=== PATIENT | female | born 1965 | race Caucasian/White ===

== ENCOUNTER 2016-07-31 17:35 | Observation (INO) ==
--- NOTE | 2016-07-31 18:19 | Emergency Department Note ---
Disposition Clinical Impression: Chest pain Qualifiers: Chest pain type: precordial pain Qualified Code(s): R07.2 - Precordial pain Disposition: Admitted As Inpatient Condition: Good Chest Pain HPI - General Chief Complaint: ED Chest Pain Stated Complaint: Chest heaviness, Poss TIA Time Seen by Provider: 07/31/16 17:46 Source: patient Limitations: no limitations Vital Signs Reviewed: Yes Nursing Notes Reviewed: Yes - History of Present Illness HPI Narrative: Patient presents with complaint of chest pressure that started around 2 PM today. She describes a minimal chest radiation up the right side of her jaw down her right arm. Patient has had some mild shortness of breath associated with this. Patient denies any aggravating alleviating factors. Patient denies prior history of similar symptoms. Patient denies tingling but she has some mild numbness associated. Friend at the bedside notes that she felt that the patient was a little "slow" than her normal self. Also appears there is some report of unsteady gait but while in emergency Department patient was able to ambulate appropriately. Patient denies vision changes Severity scale (1-10): 4 - Related Data Home Medications Medication Instructions Recorded Confirmed Acetaminophen [Tylenol] 500 mg PO Q6HR PRN 05/25/15 07/31/16 Ascorbic Acid [Vitamin C] 1,000 mg PO DAILY 05/25/15 07/31/16 Cholecalciferol (Vitamin D3) 1,000 unit PO DAILY 05/25/15 07/31/16 [Vitamin D3] Ferrous Sulfate [Iron] 325 mg PO DAILY 05/25/15 07/31/16 Furosemide [Lasix] 20 mg PO DAILY 05/25/15 07/31/16 Vitamin B Complex 1 each PO DAILY 05/25/15 07/31/16 Cholestyramine [Cholestyramine] 4 mg PO DAILY PRN 07/31/16 07/31/16 Diclofenac Sodium [Diclofenac 1 appl TP QID PRN 07/31/16 07/31/16 Sodium] Docusate [Colace] 100 mg PO BID PRN 07/31/16 07/31/16 Meloxicam [Meloxicam] 15 mg PO DAILY 07/31/16 07/31/16 Thiamine (B-1) [Vitamin B-1] 100 mg PO DAILY 07/31/16 07/31/16 Allergies Allergy/AdvReac Type Severity Reaction Status Date / Time Cephalosporins Allergy Rash Verified 05/25/15 13:37 nalbuphine [From Nubain] AdvReac Confusion Verified 05/25/15 13:37 naproxen [From Naprosyn] AdvReac See Verified 05/25/15 13:37 Comments All systems ED: reviewed and negative except as stated. Chest Pain PMH - Past Medical History Medical history: Reports: asthma, hypertension, kidney stones, other Surgical history: Reports: cholecystectomy Psychiatric history: Reports: depression - Social History Smoking Status: Unknown if ever smoked Alcohol use: Reports: occasionally Drug use: Reports: none Physical Exam - General Limitations: no limitations General appearance: alert, in no apparent distress - Head Head exam: atraumatic, normocephalic, normal inspection - Eye Eye exam: Present: normal appearance, PERRL, EOMI - ENT ENT exam: normal exam, normal oropharynx, mucous membranes moist - Neck Neck exam: Present: normal inspection, full ROM, trachea midline - Chest Chest inspection: Present: normal inspection, symmetric chest wall rise - Respiratory Respiratory exam: Present: normal lung sounds bilaterally - Cardiovascular Cardiovascular exam: Present: regular rate, normal rhythm, normal heart sounds - Abdominal Exam Abdominal exam: Present: soft, Non-Tender. Absent: tenderness, distention, guarding, rebound, rigidity - Extremities Exam Extremities exam: Present: normal inspection, full ROM. Absent: tenderness, pedal edema - Back Exam Back exam: Present: normal inspection, full ROM. Absent: tenderness - Neurological Exam Neurological exam: Present: alert, oriented X3 - Psychiatric Psychiatric exam: Present: normal affect, normal mood - Skin Skin exam: Present: warm, dry, intact, normal color Course Vital Signs Temperature 97.7 F 07/31/16 17:39 Pulse Rate 79 07/31/16 17:39 Respiratory Rate 18 07/31/16 17:39 Blood Pressure 185/98 07/31/16 17:39 O2 Sat by Pulse Oximetry 98 07/31/16 17:39 Temperature 97.6 F 07/31/16 23:23 Pulse Rate 72 07/31/16 23:23 Respiratory Rate 18 07/31/16 23:23 Blood Pressure 158/87 07/31/16 23:23 O2 Sat by Pulse Oximetry 98 07/31/16 23:23 Oxygen Delivery Oxygen Delivery Room Air Chest Pain - Differential Diagnosis Likely: pneumothorax, stable angina, atypical chest pain, st elevation myocardial infraction - Lab Data Lab results reviewed: Yes I reviewed the patient's lab results. Result diagrams: 07/31/16 18:54 07/31/16 18:45 Lab Results 07/31/16 07/31/16 07/31/16 Range/Units 18:45 18:45 18:54 WBC 8.5 (4.3-11.1) K/mcL RBC 4.47 (3.82-4.97) M/mcL Hgb 12.1 (11.5-15.4) g/dL Hct 39.2 (35.3-44.9) % MCV 87.7 (83.0-100.0) fL MCH 27.1 L (28.0-33.3) pg MCHC 30.9 L (31.6-35.5) g/dL RDW 13.5 (11.5-14.5) % Plt Count 278 (140-400) K/mcL MPV 9.8 (9.4-12.4) fL Immature Gran % 0.5 (0-4) % Seg Neutrophils % 57.6 % Lymphocytes % 34.1 % Monocytes % 5.2 % Eosinophils % 1.9 % Basophils % 0.7 % Neutrophils # 4.9 (1.6-8.9) K/mcL Lymphocytes # 2.9 (0.6-4.6) K/mcL Monocytes # 0.4 (0.0-1.3) K/mcL Eosinophils # 0.2 (0.0-0.6) K/mcL Basophils # 0.1 (0.0-0.2) K/mcL APTT (26.0-36.0) Seconds D-Dimer (0-500) ng/mLFEU Sodium 139 (136-145) mEq/L Potassium 4.2 (3.5-4.5) mEq/L Chloride 104 (98-109) mEq/L Carbon Dioxide 28 (19-29) mEq/L BUN 22 H (7-20) mg/dL Creatinine 0.84 (0.57-1.11) mg/dL Est GFR ( Amer) > 60 (> 60) Est GFR (Non-Af Amer) > 60 (> 60) BUN/Creatinine Ratio 26 (6-26) Glucose 90 (70-99) mg/dL Calculated Osmolality 291 (280-300) Calcium 9.7 (8.6-10.8) mg/dL Total Bilirubin 0.6 (0.2-1.2) mg/dL AST 13 (5-34) Units/L ALT 19 (0-55) Units/L Alkaline Phosphatase 60 (38-126) Units/L Troponin I 0.00 (0-0.03) ng/mL B-Natriuretic Peptide (0-100) pg/mL Serum Total Protein 7.8 (6.0-8.3) g/dL Albumin 4.1 (3.5-5.0) g/dL Globulin 3.7 H (2.4-3.5) g/dL Albumin/Globulin Ratio 1.1 (1.1-2.2) 07/31/16 07/31/16 Range/Units 18:54 18:56 WBC (4.3-11.1) K/mcL RBC (3.82-4.97) M/mcL Hgb (11.5-15.4) g/dL Hct (35.3-44.9) % MCV (83.0-100.0) fL MCH (28.0-33.3) pg MCHC (31.6-35.5) g/dL RDW (11.5-14.5) % Plt Count (140-400) K/mcL MPV (9.4-12.4) fL Immature Gran % (0-4) % Seg Neutrophils % % Lymphocytes % % Monocytes % % Eosinophils % % Basophils % % Neutrophils # (1.6-8.9) K/mcL Lymphocytes # (0.6-4.6) K/mcL Monocytes # (0.0-1.3) K/mcL Eosinophils # (0.0-0.6) K/mcL Basophils # (0.0-0.2) K/mcL APTT 29.5 (26.0-36.0) Seconds D-Dimer 228 (0-500) ng/mLFEU Sodium (136-145) mEq/L Potassium (3.5-4.5) mEq/L Chloride (98-109) mEq/L Carbon Dioxide (19-29) mEq/L BUN (7-20) mg/dL Creatinine (0.57-1.11) mg/dL Est GFR ( Amer) (> 60) Est GFR (Non-Af Amer) (> 60) BUN/Creatinine Ratio (6-26) Glucose (70-99) mg/dL Calculated Osmolality (280-300) Calcium (8.6-10.8) mg/dL Total Bilirubin (0.2-1.2) mg/dL AST (5-34) Units/L ALT (0-55) Units/L Alkaline Phosphatase (38-126) Units/L Troponin I (0-0.03) ng/mL B-Natriuretic Peptide < 10 (0-100) pg/mL Serum Total Protein (6.0-8.3) g/dL Albumin (3.5-5.0) g/dL Globulin (2.4-3.5) g/dL Albumin/Globulin Ratio (1.1-2.2) - Radiology Data Radiology results reviewed: Yes I reviewed the patient's radiology results. Chest X-Ray 07/31/16 17:46 IMPRESSION: Stable portable study. D/ / Shawanda Soler Cha, MD / Shawanda Soler Cha, MD Interpreting Provider: Shawanda Soler Cha, MD Head CT 07/31/16 17:46 IMPRESSION: No acute intracranial abnormality. D/ / 07/31/2016 18:21:59 Tahmina Chao MD / sharon Interpreting Provider: Tahmina Chao MD - EKG Data EKG attestation: Yes I reviewed and interpreted this EKG. EKG shows normal: sinus rhythm Rate: normal Rhythm: NSR
[2016-07-31 19:06] LABS: Alanine Aminotransferase 19 Units/L (0-55); Albumin 4.1 g/dL (3.5-5.0); Albumin/Globulin Ratio 1.1 (1.1-2.2); Alkaline Phosphatase 60 Units/L (38-126); Aspartate Amino Transferase 13 Units/L (5-34); BUN/Creatinine Ratio 26 (6-26); Bilirubin,Total 0.6 mg/dL (0.2-1.2); Blood Urea Nitrogen 22 mg/dL (7-20); Calcium 9.7 mg/dL (8.6-10.8); Carbon Dioxide 28 mEq/L (19-29); Chloride 104 mEq/L (98-109); Globulin 3.7 g/dL (2.4-3.5); Glucose 90 mg/dL (70-99); Osmolality,Calculated 291 (280-300); Potassium 4.2 mEq/L (3.5-4.5); Sodium 139 mEq/L (136-145); Total Protein 7.8 g/dL (6.0-8.3); eGFR For African Americans > 60 (> 60); eGFR For Non-African Americans > 60 (> 60)
[2016-07-31 19:14] LABS: Activated Partial Thrombo Time 29.5 Seconds (26.0-36.0)
[2016-07-31 19:43] LABS: Basophils # 0.1 K/mcL (0.0-0.2); Basophils % 0.7 %; Eosinophils # 0.2 K/mcL (0.0-0.6); Eosinophils % 1.9 %; Hematocrit 39.2 % (35.3-44.9); Hemoglobin 12.1 g/dL (11.5-15.4); Immature Granulocytes % 0.5 % (0-4); Lymphocytes # 2.9 K/mcL (0.6-4.6); Lymphocytes % 34.1 %; Mean Corpuscular HGB Conc 30.9 g/dL (31.6-35.5); Mean Corpuscular Hemoglobin 27.1 pg (28.0-33.3); Mean Corpuscular Volume 87.7 fL (83.0-100.0); Mean Platelet Volume 9.8 fL (9.4-12.4); Monocytes # 0.4 K/mcL (0.0-1.3); Monocytes % 5.2 %; Neutrophils # 4.9 K/mcL (1.6-8.9); Platelet Count 278 K/mcL (140-400); Red Blood Count 4.47 M/mcL (3.82-4.97); Red Cell Distribution Width 13.5 % (11.5-14.5); Segmented Neutrophils % 57.6 %
[2016-07-31] MEDS ORDERED: Naloxone 0.4 MG/ML INJ IVP PRN (23:01)
[2016-07-31] MEDS ORDERED: Cholestyramine 4 GM POWD.PACK PO PRN (23:03)
--- NOTE | 2016-07-31 23:56 | Internal Med History&Physical ---
Date of Encounter: 07/31/16 Time of Encounter: 23:40 Assessment and Plan (1) Chest pain Current visit: Yes Status: Acute patient with a prior cath that reports non obstructive CAD comes in with chest pain concerning for ACS, her admission EKG was unremarkable, her troponin levels were not elevated, we will admit for stress test, meanwhile we will cycle troponin, telemonitor, check A1c and lipid panel, NPO after midnight Qualifiers: Chest pain type: precordial pain Qualified Code(s): R07.2 - Precordial pain (2) Acute encephalopathy Current visit: Yes Status: Acute her transient confusion, fleeting left sided weakness and weak him specialist strength is not consistent with her Chest pain, her admission head CT was unremarkable but due to concern for TIA vs CVA, we will get an MRI of the brain for further evaluation (3) LORENA on CPAP Current visit: Yes Status: Acute she is on CPAP and hoe and she brought it, we will get RT to manage it (4) HTN (hypertension) Current visit: Yes Status: Chronic she is on metoprolol at home and her BP usually runs in the 120's/70's and for that reason her medication was stopped about a month ago, we will resume it in the setting of her elevated BP Qualifiers: Hypertension type: essential hypertension Qualified Code(s): I10 - Essential (primary) hypertension (5) SVT (supraventricular tachycardia) Current visit: Yes Status: Chronic this is thought to be related to her mitral valve prolapse, she is on metoprolol a home, we will continue (6) Depression Current visit: Yes Status: Chronic will continue home medications Qualifiers: Depression Type: reactive depression Qualified Code(s): F32.9 - Major depressive disorder, single episode, unspecified (7) Morbid obesity with BMI of 50.0-59.9, adult Current visit: Yes Status: Chronic she already see a medical laboratory scientist here as outpatient, she will continue Internal Medicine - H&P: HPI Chief complaint: Chest pain Admitted From: Emergency Dept Plans for Post Hospital Care: Home History of present illness: Ms. Black is a 50 year old female with a history of morbid obesity and well controlled HTN was brought in today for chest pain. She reports that she was in her usual state of health until between 2-3pm this afternoon when whilst on a conference call at work she felt her right hand go numb and feel heavy. This rapidly moved into her right jaw and across her chest. There was then chest heaviness, " like someone sitting on my chest". She rated this heaviness as 3-4/ 10 and lasted for about 15-2 minutes and went away. She left work and went home. For about 45 minutes she was chest pain free and had no other symptoms. Her pain came again in similar fashion, her friend who was with her checked her BP and it was reading 160/115mmHg in one arm and 160/101mmHg in the other arm. She also felt wobbly and was holding on to structures for support as she walked. Her pain was associated with lightheadedness. She felt cold and was short of breath, she also had nausea. She denies diaphoresis, feeling of apprehension, palpitations or syncope. The pain lasted until she got to the ER, the pain self abated in the ER. Of note she reports that for the past 3 days she has had lightheadedness, no vertigo, and that it comes on sometime at rest or when she ambulates. She has not noticed any focal weakness except when she had the chest pain, during that period she lost strength in her left arm and had a weak him specialist strength per her friend. She was kel slow in responding to questions and felt groggy. She has had a stress test in the past, she additionally had a cardiac cath about 10 years ago for which no stent was placed but was told she had a narrowing of about 35% in one of her vessels. Past Med Surg Social Fam HX - Past Medical History Source: patient Medical history: asthma, hypertension, kidney stones, other (LORENA on CPAP and 2L/ min of O2 at night, MVP with SVT episodes, ) Psychiatric history: depression - Past Surgical History Surgical History: cholecystectomy, other (lapband in 2009, admissions for D&C) - Social History Smoking Status: Never smoker Smokeless Tobacco Status: No Alcohol use: occasionally Drug use: none Current living situation: Home - Independent, Home Activity Level: Independent ambulation - Family History Mother Living Status: Still Living Hx Family Cardiac Disorders: Yes (CHF) Hx Family Respiratory Disorders: No Hx Family Cancer: Yes Hx Family GI Disorders: No Hx Family Endocrine Disorder: Yes (Maternal grandfather) Hx Family Neuromuscular Disorders: No Hx Family Neurologic Disorders: No Hx Family HEENT Disorders: No Hx Family Autoimmune Disorders: No Father Hx Family Cardiac Disorders: Yes ([place]) Hx Family Respiratory Disorders: Yes Brother Hx Family Endocrine Disorder: Yes (DM) - Additional Family History Additional family history: father had sudden before his 50's, he had HTN, mother has stage 4 melanoma in remission, HTN, CHF,. a brother has DM Internal Medicine - H&P: Meds Acetaminophen [Tylenol] 500 mg PO Q6HR PRN 05/25/15 [History] Ascorbic Acid [Vitamin C] 1,000 mg PO DAILY 05/25/15 [History] Cholecalciferol (Vitamin D3) [Vitamin D3] 1,000 unit PO DAILY 05/25/15 [History] Ferrous Sulfate [Iron] 325 mg PO DAILY 05/25/15 [History] Furosemide [Lasix] 20 mg PO DAILY 05/25/15 [History] Vitamin B Complex 1 each PO DAILY 05/25/15 [History] Cholestyramine [Cholestyramine] 4 mg PO DAILY PRN 07/31/16 [History] Diclofenac Sodium [Diclofenac Sodium] 1 appl TP QID PRN 07/31/16 [History] Docusate [Colace] 100 mg PO BID PRN 07/31/16 [History] Meloxicam [Meloxicam] 15 mg PO DAILY 07/31/16 [History] Thiamine (B-1) [Vitamin B-1] 100 mg PO DAILY 07/31/16 [History] Allergies Cephalosporins Allergy (Verified 05/25/15 13:37) Rash nalbuphine [From Nubain] Adverse Reaction (Verified 05/25/15 13:37) Confusion naproxen [From Naprosyn] Adverse Reaction (Verified 05/25/15 13:37) See Comments pt has had lap-band in the past All Systems PM: A 10-system review of systems was performed and is negative for pertinent findings except as documented above in the HPI. - Constitutional Vitals: Temp Pulse Resp BP Pulse Ox 97.6 F 72 18 158/87 98 07/31/16 23:23 07/31/16 23:23 07/31/16 23:23 07/31/16 23:23 07/31/16 23:23 PHYSICAL EXAMINATION: GENERAL: Adult female, lying in bed with no sign of distress, Alert, morbidly obese looking HEENT: NC/AT, EOMI, PERRLA, anicteric sclera, normal conjunctiva, supple, clear nares, moist mucous membranes, clear oropharynx, central uvula RESP: no chest wall tenderness with palpation, lungs are clear to auscultation bilaterally, good AE bilaterally, No crackles or wheeze CARDIO: Normal hearts sounds; S1 and 2, RRR with no murmurs, no JVD, obese looking legs GI: Soft, full, no tenderness, no organomegaly felt, normal bowel sounds heard MUSCULOSKELETAL: grossly normal movements bilaterally, no deformities noted, no calf tenderness EXTREMITIES: No clubbing, cyanosis or edema, NEUROLOGIC: CN 2-12 intact grossly. No motor/sensory deficit appreciated, PSYCHIATRY: AAO x 3. Mood is fair, exhibits appropriate judgement SKIN: no skin rash or ulcers noted Internal Med - H&P Results - Labs CBC & Chem 7: 07/31/16 18:54 07/31/16 18:45 - EKG Data -: EKG Interpreted by Myself EKG shows normal: sinus rhythm - Diagnostic Studies Chest x-ray Status: image reviewed by me CT scan - head Status: image reviewed by me
[2016-08-01] MEDS ORDERED: Regadenoson 0.4 MG/5 ML SYRINGE IVP ONE (06:16)
[2016-08-01 07:12] LABS: Hemoglobin A1C 5.2 %
[2016-08-01 07:28] LABS: BUN/Creatinine Ratio 24 (6-26); Blood Urea Nitrogen 18 mg/dL (7-20); Calcium 8.9 mg/dL (8.6-10.8); Carbon Dioxide 28 mEq/L (19-29); Chloride 106 mEq/L (98-109); Chol/HDL Ratio 4.8 (0-4.9); Cholesterol 178 mg/dL (< 200); Glucose 101 mg/dL (70-99); HDL Cholesterol 37 mg/dL (40-59); LDL Cholesterol,Calculated 104 mg/dL (0-99); Magnesium 2.1 mg/dL (1.6-2.6); Osmolality,Calculated 296 (280-300); Phosphorous 3.7 mg/dL (2.3-4.7); Potassium 3.7 mEq/L (3.5-4.5); Sodium 142 mEq/L (136-145); Triglycerides 186 mg/dL (< 150); eGFR For African Americans > 60 (> 60); eGFR For Non-African Americans > 60 (> 60)
--- NOTE | 2016-08-01 10:26 | Internal Med Progress Note ---
Date of Encounter: 08/01/16 Time of Encounter: 10:24 - Assessment and plan (1) Chest pain Current Visit: Yes Status: Acute Assessment and plan: Trops negative, no EKG changes, follow up stress test report in the morning. Qualifiers: Chest pain type: precordial pain Qualified Code(s): R07.2 - Precordial pain (2) LORENA on CPAP Current Visit: Yes Status: Chronic Assessment and plan: CPAP at bedtime. (3) HTN (hypertension) Current Visit: Yes Status: Chronic Assessment and plan: Controlled Now, continue current medications. Qualifiers: Hypertension type: essential hypertension Qualified Code(s): I10 - Essential (primary) hypertension (4) SVT (supraventricular tachycardia) Current Visit: Yes Status: Chronic Assessment and plan: Chronic as per the patient , secondary to mitral valve prolapse. Continue telemetry. (5) Depression Current Visit: Yes Status: Chronic Assessment and plan: Continue home medications. Qualifiers: Depression Type: reactive depression Qualified Code(s): F32.9 - Major depressive disorder, single episode, unspecified (6) Morbid obesity with BMI of 50.0-59.9, adult Current Visit: Yes Status: Chronic Assessment and plan: Encouraged weight loss. (7) Acute encephalopathy Current Visit: Yes Status: Acute Assessment and plan: Resolved Possibly secondary to uncontrolled hypertension. Head CT, and brain MRI negative for any acute processes. - Subjective Interval history: Seen at bedside Admitted for evaluation of chest pain Other admitting diagnosis include acute encephalopathy (resolved), Uncontrolled HTN She has a PMH of Asthma, HTN, Nephrolithiasis, LORENA on CPAP, Mitral valve prolapse - Constitutional Vitals: Temp Pulse Resp BP Pulse Ox 98.0 F 56 16 145/79 97 08/01/16 07:25 08/01/16 07:25 08/01/16 07:25 08/01/16 07:25 08/01/16 07:25 General appearance: Present: A&O X 3, morbidly obese, pleasant, answers questions appropriately Exam: Physical Examination Gen: Adult female, lying in bed with no sign of distress, Alert, morbidly obese looking HEENT: NC/AT, EOMI, PERRLA, anicteric sclera, normal conjunctiva, supple, clear nares, moist mucous membranes, clear oropharynx, central uvula RESP: no chest wall tenderness with palpation, lungs are clear to auscultation bilaterally, good AE bilaterally, No crackles or wheeze CARDIO: Normal hearts sounds; S1 and 2, RRR with no murmurs, no JVD, obese looking legs GI: Soft, full, no tenderness, no organomegaly felt, normal bowel sounds heard MUSCULOSKELETAL: grossly normal movements bilaterally, no deformities noted, no calf tenderness EXTREMITIES: No clubbing, cyanosis or edema, NEUROLOGIC: CN 2-12 intact grossly. No motor/sensory deficit appreciated, PSYCHIATRY: AAO x 3. Mood is fair, exhibits appropriate judgement SKIN: no skin rash or ulcers noted - Head Head exam: Present: atraumatic, normocephalic - Eye Eye exam: Present: PERRL, conjuntiva pink, sclera anicteric Pupils: Present: PERRL - Neck Neck exam general surgery: Present: supple, trachea midline. Absent: lymphadenopathy - Respiratory Respiratory exam: Present: CTAB. Absent: accessory muscle use, rales, rhonchi, wheezes - Cardiovascular Cardiovascular exam: Present: RRR, +S1 (LOud S1), +S2. Absent: diastolic murmur , gallop, rubs, systolic murmur - GI/Abdominal GI/Abdominal exam: Present: normal bowel sounds, soft, no peritoneal signs. Absent: distended, tenderness - Extremities Exam Extremities exam: Present: warm, radial pulses palpable and symetrical. Absent : calf tenderness, cyanotic, pedal edema - Neurological Exam Neurological exam: Present: alert, CN II-XII intact, oriented X3, no focal deficits. Absent: pronater drift, facial droop, speech deficit - Skin Skin exam: Present: dry, intact Internal Medicine: Result - Labs CBC & Chem 7: 07/31/16 18:54 08/01/16 06:14 Labs: BMP 08/01/16 06:14 Sodium 142 Potassium 3.7 Chloride 106 Carbon Dioxide 28 BUN 18 Creatinine 0.74 Glucose 101 H Calcium 8.9 Cardiac Enzymes 07/31/16 08/01/16 Range/Units 23:56 06:14 Troponin I 0.00 0.00 (0-0.03) ng/mL - ABG Interpretation ABG results: PT/INR, D-dimer D-Dimer 228 ng/mLFEU (0-500) 07/31/16 18:56 Consult Discharge Plan - Plan Referrals: Danica Ly MD [Primary Care Provider] -
[2016-08-01] MEDS: Furosemide 20 MG TABLET PO SCH (13:36)
[2016-08-01] MEDS: Vitamin B Complex/Vit C/Vit E 1 EACH TABLET PO SCH (13:37)
[2016-08-01] MEDS: Ascorbic Acid 500 MG TABLET PO SCH (13:37)
[2016-08-01] MEDS: Thiamine (B-1) 100 MG TABLET PO SCH (13:37)
[2016-08-01] MEDS: Cholecalciferol (D-3) 1,000 UNIT TABLET PO SCH (13:38)
[2016-08-01] MEDS ORDERED: *HR* Heparin 5,000 UNIT/ML VIAL SQ SCH (14:00)
[2016-08-01] MEDS: *HR* Heparin 5,000 UNIT/ML VIAL SQ SCH ×2 (14:10→21:22)
--- NOTE | 2016-08-01 19:28 | Electrocardiograph Report ---
[address] [address] Test Date: 2016-07-31 Pat Name: Camelia Black Department: 105 Room: 3B Gender: F Follow Up Manager: : 1965 Requested By: Isai Echeverria Order Number: [id number] Reading MD: Jarod Ware MD Measurements Intervals [place] Rate: 74 P: 44 ME: 181 QRS: -16 QRSD: 93 T: 31 QT: 386 QTc: 413 Interpretive Statements SINUS RHYTHM Poor R wave progression Electronically Signed On 08-01-2016 19:27:18 EDT by Jarod Ware MD
[2016-08-02] MEDS: *HR* Heparin 5,000 UNIT/ML VIAL SQ SCH (06:27)
[2016-08-02] MEDS: Ascorbic Acid 500 MG TABLET PO SCH (09:57)
[2016-08-02] MEDS: Cholecalciferol (D-3) 1,000 UNIT TABLET PO SCH (09:57)
[2016-08-02] MEDS: Vitamin B Complex/Vit C/Vit E 1 EACH TABLET PO SCH (09:57)
[2016-08-02] MEDS: Furosemide 20 MG TABLET PO SCH (09:57)
[2016-08-02] MEDS: Thiamine (B-1) 100 MG TABLET PO SCH (09:57)
[2016-08-02 11:42] VITALS: BP 131/87
--- NOTE | 2016-08-02 11:48 | Nuclear Medicine Stress Report ---
Regadenoson Nuclear 2 day Name: Camelia Black Date of Study: 08/01/2016 Date: 1965 Ht: 66.0 in Medical Record#: [id number] Age: 50 Wt: 320.0 lb Gender: Female Order #: [id number] Location: [facility] Room: [facility] Supervising Provider: Padmini Malik CNP Reading Physician: Graham Haro DO, FACC, FASPA Ordering Physician: Madeline Espino CNP Primary Care Physician: Danica Ly MD Stress Technologist: Abida Morel PACKAGER, CCT Flamer After Lasting: Brody Diehl Indications: Chest Pain Impression: Pharmacologic stress ECG is negative for ischemia at level of heart rate achieved. Gated EF > 70%. Perfusion imaging was negative for ischemia or infarct. History: Hypertension Stress Test Summary: Stress Test Type: Pharmacologic Regadenoson 0.4mg/5ml given IV Baseline Information: Initial Heart Rate: 67 Blood Pressure: 138/74 Stress Information: Test Terminated Due to (primary): As per protocol Maximum Blood Pressure: 118/72 Maximum Heart Rate: 83 Percent Maximum Heart Rate Achieved: 48 Double Product: [id number] METS Reached: 1 Symptoms: No chest symptoms Nuclear Summary: SPECT myocardial perfusion imaging using Tc99m Sestamibi given intravenously was performed at rest and following cardiac stress testing. The resting images were obtained following initial dose of 33.5 mCi. Following stress an additional dose of 34.2 mCi was given at peak exercise or 30 seconds post regadenoson infusion. Medication Given: Time Medication Dose Units Route Findings: Stress Note * Resting ECG demonstrated normal sinus rhythm. * No baseline arrhythmias were noted. * Pharmacologic stress ECG is negative for ischemia at level of heart rate achieved. * No arrhythmias were noted during stress. * Patient had no chest pain during stress. Hemodynamic responses * Normal hemodynamic responses to pharmacologic stress. Study Quality * Study quality is average. Gated EF > 70% * Gated EF > 70%. Left Ventricle * The left ventricle is not dilated. * LVEDV = 126 mL. NORMALS * Normal wall motion. * Normal Segmental Perfusion in rest. * Normal segmental perfusion in stress. TID * No evidence of transient ischemic dilatation. TID ratio * TID ratio = 1.06. Lung Uptake * There is no evidence of increase lung uptake. Updated by Graham Haro DO, ALVIN, DOMINIC, KWASI on 08/02/2016 11:41:26 AM electronically signed on 08/02/2016 11:41:55 AM with status of Final
--- NOTE | 2016-08-02 12:46 | Discharge Summary ---
Date of Encounter: 08/02/16 Time of Encounter: 10:00 - Discharge Diagnosis (1) Chest pain Priority: Primary Status: Acute Qualifiers: Chest pain type: precordial pain Qualified Code(s): R07.2 - Precordial pain (2) HTN (hypertension) Priority: Secondary Status: Chronic Qualifiers: Hypertension type: essential hypertension Qualified Code(s): I10 - Essential (primary) hypertension (3) Morbid obesity with BMI of 50.0-59.9, adult Priority: Secondary Status: Chronic - Discharge Medications Home Medications: Acetaminophen [Tylenol] 500 mg PO Q6HR PRN 05/25/15 [History] Ascorbic Acid [Vitamin C] 1,000 mg PO DAILY 05/25/15 [History] Cholecalciferol (Vitamin D3) [Vitamin D3] 1,000 unit PO DAILY 05/25/15 [History] Ferrous Sulfate [Iron] 325 mg PO DAILY 05/25/15 [History] Furosemide [Lasix] 20 mg PO DAILY 05/25/15 [History] Vitamin B Complex 1 each PO DAILY 05/25/15 [History] Cholestyramine 4 mg PO DAILY PRN 07/31/16 [History] Diclofenac Sodium 1 appl TP QID PRN 07/31/16 [History] Docusate [Colace] 100 mg PO BID PRN 07/31/16 [History] Meloxicam 15 mg PO DAILY 07/31/16 [History] Thiamine (B-1) [Vitamin B-1] 100 mg PO DAILY 07/31/16 [History] Allergies/Adverse Reactions: Allergies Cephalosporins Allergy (Verified 05/25/15 13:37) Rash nalbuphine [From Nubain] Adverse Reaction (Verified 05/25/15 13:37) Confusion naproxen [From Naprosyn] Adverse Reaction (Verified 05/25/15 13:37) See Comments pt has had lap-band in the past Procedures/tests Complete & Pending: Procedures Performed prior 72 hours Category Date Time Status NM narendra perf SPECT multi [NM] Routine Exams 07/31/16 23:13 Taken MR head/brain wo con [MR] Routine MRI 07/31/16 23:54 Completed SP pharm nuclear stress Routine Y 08/01/16 07:45 Completed Date of admission: 07/31/16 21:43 [facility]: Ephraim Chang Anticipated date of discharge: 08/02/16 - Patient Status Disposition: Home, Self-Care Condition: Good Overall status at discharge: patient is back to baseline - Discharge Instructions Instructions: Chest Pain (DC) Follow Up With: Danica Ly MD [Primary Care Provider] - 08/13/16 1:45 pm - Diet and Activity Activity: increase activity as tolerated Diet: advance to your usual diet Interval History: Ms. Black is a 50 year old female with a history of morbid obesity and well controlled HTN was brought in today for chest pain. She reports that she was in her usual state of health until between 2-3pm this afternoon when whilst on a conference call at work she felt her right hand go numb and feel heavy. This rapidly moved into her right jaw and across her chest. There was then chest heaviness, " like someone sitting on my chest". She rated this heaviness as 3-4/ 10 and lasted for about 15-2 minutes and went away. She left work and went home. For about 45 minutes she was chest pain free and had no other symptoms. Her pain came again in similar fashion, her friend who was with her checked her BP and it was reading 160/115mmHg in one arm and 160/101mmHg in the other arm. She also felt wobbly and was holding on to structures for support as she walked. Her pain was associated with lightheadedness. She felt cold and was short of breath, she also had nausea. She denies diaphoresis, feeling of apprehension, palpitations or syncope. The pain lasted until she got to the ER, the pain self abated in the ER. Hospital course: Ms. Black is a 50 year old female admitted for chest pain and dizziness. She was placed on continuous cardiac rehabilitation specialist. 3 sets of troponin negative, d-dimer negative. Patient had a stress test, which is negative, EF 70%. Brain MRI unremarkable. Patient is pain-free now. Will discharge patient home today. Patient was seen and examined. Awake alert oriented 3. Vitals are stable. No chest pain or shortness of breath. No dizziness. Will discharge patient home and follow-up with PCP as outpatient. - Time Spent with Patient Total time spent providing and/or coordinating discharge services:40 min Greater than 30 minutes - Constitutional Vitals: Temp Pulse Resp BP Pulse Ox 98.3 F 66 18 131/87 97 08/02/16 11:41 08/02/16 11:41 08/02/16 11:41 08/02/16 11:41 08/02/16 11:41 General appearance: Present: A&O X 3, morbidly obese, pleasant, answers questions appropriately - Head Head exam: Present: atraumatic, normocephalic - Eye Eye exam: Present: PERRL, conjuntiva pink, sclera anicteric Pupils: Present: PERRL - Neck Neck exam general surgery: Present: supple, trachea midline. Absent: lymphadenopathy - Respiratory Respiratory exam: Present: CTAB. Absent: accessory muscle use, rales, rhonchi, wheezes - Cardiovascular Cardiovascular exam: Present: RRR, +S1, +S2. Absent: diastolic murmur, gallop, rubs, systolic murmur - GI/Abdominal GI/Abdominal exam: Present: normal bowel sounds, soft, no peritoneal signs. Absent: distended, tenderness - Extremities Exam Extremities exam: Present: warm, radial pulses palpable and symetrical. Absent : calf tenderness, cyanotic, pedal edema - Neurological Exam Neurological exam: Present: CN II-XII intact, oriented X3, no focal deficits. Absent: pronater drift, facial droop, speech deficit - Skin Skin exam: Present: dry, intact
== END 2016-08-02 13:30 | disposition home or self-care (01) ==
LOC: EMEROO 17:35 → 3BNU 17:35 → SUATTDRO 21:43 → 3BNU 22:50
PROVIDERS: ADMIT Registered Nurse; ATTEND Internal Medicine

== ENCOUNTER 2020-02-17 15:32 | Inpatient (IN) ==
[2020-02-17] MEDS ORDERED: *HR* HYDROmorphone (PF) 1 MG/ML SYRINGE IVP STA (16:00)
[2020-02-17] MEDS ORDERED: 0.9 % Sodium Chloride 1,000 ML IVC ONE (16:01)
[2020-02-17] MEDS ORDERED: Ondansetron 4 MG/2 ML VIAL IVP ONE (16:01)
[2020-02-17 16:35] LABS: Basophils % 0.4 %; Eosinophils # 0.2 K/mcL (0.0-0.6); Eosinophils % 1.8 %; Hematocrit 39.7 % (35.3-44.9); Hemoglobin 12.7 g/dL (11.5-15.4); Immature Granulocytes % 0.2 % (0-4); Lymphocytes # 1.9 K/mcL (0.6-4.6); Lymphocytes % 20.9 %; Mean Corpuscular Hemoglobin 28.6 pg (28.0-33.3); Mean Corpuscular Volume 89.4 fL (83.0-100.0); Mean Platelet Volume 9.3 fL (9.4-12.4); Monocytes # 0.4 K/mcL (0.0-1.3); Neutrophils # 6.5 K/mcL (1.6-8.9); Platelet Count 240 K/mcL (140-400); Red Blood Count 4.44 M/mcL (3.82-4.97); Segmented Neutrophils % 72.7 %; White Blood Count 8.9 K/mcL (4.3-11.1)
[2020-02-17] MEDS ORDERED: *HR* HYDROmorphone (PF) 1 MG/ML SYRINGE IVP ONE (16:53)
[2020-02-17 16:59] LABS: BUN/Creatinine Ratio 23 (6-26); Blood Urea Nitrogen 13 mg/dL (6-20); Calcium 9.4 mg/dL (8.6-10.3); Carbon Dioxide 27 mEq/L (23-29); Chloride 103 mEq/L (98-107); Glucose 110 mg/dL (70-105); Osmolality,Calculated 289 (280-300); Potassium 3.4 mEq/L (3.5-5.1); Sodium 139 mEq/L (136-145); eGFR For African Americans > 60 (> 60); eGFR For Non-African Americans > 60 (> 60)
[2020-02-17 18:56] LABS: Bilirubin,Urine Negative (Negative); Blood,Urine Trace (Negative); Clarity,Urine Turbid (Clear); Color,Urine Light-Yellow (Yellow); Glucose,Urine (UA) Normal (Normal); Ketones,Urine Negative (Negative); Leukocyte Esterase,Urine Moderate (Negative); Mucus,Urine Few per lpf (None-Few); Nitrite,Urine Negative (Negative); PH,Urine 5.5 pH Units (5.0-8.0); Protein,Urine Trace mg/dL (Neg-Trace); Specific Gravity,Urine 1.022 (1.010-1.025); Squamous Epithelial Cell,Urine Moderate per hpf (None-Few); Transitional Epi Cells,Urine Few per hpf (None-Few); Urobilinogen,Urine Normal (Normal)
[2020-02-17] MEDS ORDERED: predniSONE 20 MG TABLET PO ONE (21:23)
[2020-02-17] MEDS ORDERED: Gabapentin 300 MG CAPSULE PO SCH (21:30)
[2020-02-17] MEDS ORDERED: *HR* OxyCODONE/APAP 5/325 TABLET PO ONE (21:30)
[2020-02-17] MEDS ORDERED: *HR* FentaNYL (PF) 100 MCG/2 ML VIAL IVP ONE (21:33)
[2020-02-17] MEDS ORDERED: Acetaminophen 325 MG TABLET PO PRN (22:05)
[2020-02-17] MEDS ORDERED: Naloxone 0.4 MG/ML INJ IVP PRN (22:05)
[2020-02-17] MEDS ORDERED: Ondansetron 4 MG/2 ML VIAL IVP PRN (22:05)
[2020-02-17] MEDS: Ringers Solution, Lactated 1,000 ML IVC SCH (23:02)
[2020-02-17] MEDS: *HR* OxyCODONE Immed Rel 5 MG TABLET PO PRN (23:05)
[2020-02-18] MEDS ORDERED: diazePAM 5 MG TABLET PO ONE (00:59)
[2020-02-18 02:41] LABS: Basophils % 0.3 %; Eosinophils % 0.1 %; Hematocrit 38.5 % (35.3-44.9); Immature Granulocytes % 0.8 % (0-4); Lymphocytes # 0.8 K/mcL (0.6-4.6); Lymphocytes % 10.9 %; Mean Corpuscular HGB Conc 31.2 g/dL (31.6-35.5); Mean Corpuscular Hemoglobin 28.2 pg (28.0-33.3); Mean Corpuscular Volume 90.4 fL (83.0-100.0); Mean Platelet Volume 9.6 fL (9.4-12.4); Monocytes # 0.1 K/mcL (0.0-1.3); Monocytes % 1.1 %; Neutrophils # 6.4 K/mcL (1.6-8.9); Platelet Count 225 K/mcL (140-400); Red Blood Count 4.26 M/mcL (3.82-4.97); Red Cell Distribution Width 13.2 % (11.5-14.5); Segmented Neutrophils % 86.8 %; White Blood Count 7.4 K/mcL (4.3-11.1)
[2020-02-18 02:42] LABS: INR 1.1; Prothrombin Time 13.2 Seconds (9.4-12.1)
[2020-02-18 02:53] LABS: BUN/Creatinine Ratio 22 (6-26); Blood Urea Nitrogen 14 mg/dL (6-20); Calcium 9.1 mg/dL (8.6-10.3); Carbon Dioxide 27 mEq/L (23-29); Chloride 103 mEq/L (98-107); Glucose 219 mg/dL (70-105); Magnesium 1.9 mg/dL (1.6-2.6); Osmolality,Calculated 293 (280-300); Potassium 4.1 mEq/L (3.5-5.1); Sodium 138 mEq/L (136-145); eGFR For African Americans > 60 (> 60); eGFR For Non-African Americans > 60 (> 60)
[2020-02-18] MEDS ORDERED: D5% in Water 1,000 ML IVC PRN (04:08)
[2020-02-18] MEDS ORDERED: Dextrose Gel 15 GM/37.5 ML TUBE PO PRN ×2 (04:08)
[2020-02-18] MEDS ORDERED: *HR* Dextrose 50 % in Water (Vial) 50 ML VIAL IVP PRN (04:08)
[2020-02-18] MEDS: *HR* HYDROcodone/Acet 5/325 mg TABLET PO PRN (05:41)
[2020-02-18] MEDS: Insulin LISPRO 300 UNITS/3 ML VIAL SQ SCH ×3 (05:46→18:08)
[2020-02-18] MEDS: Thiamine (B-1) 100 MG TABLET PO SCH (07:59)
[2020-02-18] MEDS: Furosemide 20 MG TABLET PO SCH (07:59)
[2020-02-18] MEDS: *HR* OxyCODONE Immed Rel 5 MG TABLET PO PRN ×3 (07:59→20:38)
[2020-02-18] MEDS: tiZANidine 4 MG TABLET PO PRN ×2 (10:13→22:44)
[2020-02-18] MEDS: predniSONE 20 MG TABLET PO SCH (13:24)
[2020-02-18] MEDS: amLODIPine 5 MG TABLET PO SCH (14:05)
[2020-02-18] MEDS: Gabapentin 300 MG CAPSULE PO SCH ×2 (14:06→20:31)
[2020-02-18] MEDS: Ringers Solution, Lactated 1,000 ML IVC SCH (18:08)
[2020-02-19] MEDS: Insulin LISPRO 300 UNITS/3 ML VIAL SQ SCH ×4 (00:18→18:45)
[2020-02-19] MEDS: *HR* OxyCODONE Immed Rel 5 MG TABLET PO PRN ×3 (04:03→20:31)
[2020-02-19] MEDS: *HR* Labetalol 20 MG/4 ML SYRINGE IVP PRN ×2 (04:15→21:59)
[2020-02-19 07:36] LABS: Basophils % 0.3 %; Eosinophils # 0.1 K/mcL (0.0-0.6); Eosinophils % 0.7 %; Hematocrit 38.4 % (35.3-44.9); Hemoglobin 12.1 g/dL (11.5-15.4); Immature Granulocytes % 0.9 % (0-4); Lymphocytes # 3.1 K/mcL (0.6-4.6); Lymphocytes % 32.5 %; Mean Corpuscular HGB Conc 31.5 g/dL (31.6-35.5); Mean Corpuscular Hemoglobin 28.7 pg (28.0-33.3); Mean Platelet Volume 9.3 fL (9.4-12.4); Monocytes # 0.4 K/mcL (0.0-1.3); Monocytes % 4.4 %; Neutrophils # 5.7 K/mcL (1.6-8.9); Platelet Count 260 K/mcL (140-400); Red Blood Count 4.22 M/mcL (3.82-4.97); Red Cell Distribution Width 13.2 % (11.5-14.5); Segmented Neutrophils % 61.2 %; White Blood Count 9.4 K/mcL (4.3-11.1)
[2020-02-19 07:46] LABS: BUN/Creatinine Ratio 16 (6-26); Blood Urea Nitrogen 10 mg/dL (6-20); Calcium 9.7 mg/dL (8.6-10.3); Carbon Dioxide 32 mEq/L (23-29); Chloride 102 mEq/L (98-107); Glucose 112 mg/dL (70-105); Osmolality,Calculated 292 (280-300); Potassium 3.8 mEq/L (3.5-5.1); Sodium 141 mEq/L (136-145); eGFR For African Americans > 60 (> 60); eGFR For Non-African Americans > 60 (> 60)
[2020-02-19 09:01] LABS: Estimated Average Glucose 128 mg/dl
[2020-02-19] MEDS: Thiamine (B-1) 100 MG TABLET PO SCH (09:58)
[2020-02-19] MEDS: amLODIPine 5 MG TABLET PO SCH (09:59)
[2020-02-19] MEDS: predniSONE 20 MG TABLET PO SCH (09:59)
[2020-02-19] MEDS: *HR* HYDROcodone/Acet 5/325 mg TABLET PO PRN (09:59)
[2020-02-19] MEDS: Furosemide 20 MG TABLET PO SCH (09:59)
[2020-02-19] MEDS: tiZANidine 4 MG TABLET PO PRN ×2 (09:59→21:59)
[2020-02-19] MEDS: Gabapentin 300 MG CAPSULE PO SCH ×3 (09:59→20:32)
[2020-02-20] MEDS: Insulin LISPRO 300 UNITS/3 ML VIAL SQ SCH ×5 (01:15→23:58)
[2020-02-20] MEDS: *HR* Labetalol 20 MG/4 ML SYRINGE IVP PRN ×2 (04:10→08:09)
[2020-02-20] MEDS: *HR* HYDROcodone/Acet 5/325 mg TABLET PO PRN (04:57)
[2020-02-20] MEDS: *HR* OxyCODONE Immed Rel 5 MG TABLET PO PRN ×3 (07:48→21:08)
[2020-02-20] MEDS: Thiamine (B-1) 100 MG TABLET PO SCH (07:48)
[2020-02-20] MEDS: predniSONE 20 MG TABLET PO SCH (07:49)
[2020-02-20] MEDS: Furosemide 20 MG TABLET PO SCH (07:49)
[2020-02-20] MEDS: Gabapentin 300 MG CAPSULE PO SCH ×3 (07:49→21:08)
[2020-02-20] MEDS: amLODIPine 5 MG TABLET PO SCH (07:49)
[2020-02-20] MEDS: lisinopriL 10 MG TABLET PO SCH (14:27)
[2020-02-20] MEDS: tiZANidine 4 MG TABLET PO PRN (23:36)
[2020-02-21] MEDS: *HR* HYDROcodone/Acet 5/325 mg TABLET PO PRN (01:47)
[2020-02-21] MEDS: Insulin LISPRO 300 UNITS/3 ML VIAL SQ SCH ×3 (06:16→17:27)
[2020-02-21] MEDS: lisinopriL 10 MG TABLET PO SCH (08:56)
[2020-02-21] MEDS: predniSONE 20 MG TABLET PO SCH (08:56)
[2020-02-21] MEDS: *HR* OxyCODONE Immed Rel 5 MG TABLET PO PRN ×3 (08:56→21:56)
[2020-02-21] MEDS: amLODIPine 5 MG TABLET PO SCH (08:56)
[2020-02-21] MEDS: Furosemide 20 MG TABLET PO SCH (08:57)
[2020-02-21] MEDS: Gabapentin 300 MG CAPSULE PO SCH ×3 (08:57→20:02)
[2020-02-21] MEDS: Thiamine (B-1) 100 MG TABLET PO SCH (08:57)
[2020-02-21] MEDS: tiZANidine 4 MG TABLET PO PRN ×2 (11:48→23:48)
[2020-02-21 14:49] LABS: INR 1.1; Prothrombin Time 13.2 Seconds (9.4-12.1)
[2020-02-21 14:54] LABS: Basophils % 0.3 %; Eosinophils % 0.2 %; Hematocrit 40.4 % (35.3-44.9); Hemoglobin 12.5 g/dL (11.5-15.4); Immature Granulocytes % 0.8 % (0-4); Lymphocytes # 1.4 K/mcL (0.6-4.6); Lymphocytes % 10.9 %; Mean Corpuscular HGB Conc 30.9 g/dL (31.6-35.5); Mean Corpuscular Hemoglobin 28.1 pg (28.0-33.3); Mean Corpuscular Volume 90.8 fL (83.0-100.0); Mean Platelet Volume 9.2 fL (9.4-12.4); Monocytes # 0.3 K/mcL (0.0-1.3); Monocytes % 2.1 %; Neutrophils # 11.2 K/mcL (1.6-8.9); Platelet Count 302 K/mcL (140-400); Red Blood Count 4.45 M/mcL (3.82-4.97); Red Cell Distribution Width 13.8 % (11.5-14.5); Segmented Neutrophils % 85.7 %; White Blood Count 13.1 K/mcL (4.3-11.1)
[2020-02-21 14:59] LABS: BUN/Creatinine Ratio 25 (6-26); Blood Urea Nitrogen 19 mg/dL (6-20); Calcium 9.3 mg/dL (8.6-10.3); Carbon Dioxide 29 mEq/L (23-29); Chloride 100 mEq/L (98-107); Glucose 172 mg/dL (70-105); Osmolality,Calculated 290 (280-300); Potassium 3.9 mEq/L (3.5-5.1); Sodium 137 mEq/L (136-145); eGFR For African Americans > 60 (> 60); eGFR For Non-African Americans > 60 (> 60)
[2020-02-21] MEDS: Nystatin POWDER 30 GM BOTTLE TP SCH ×2 (17:14→20:07)
[2020-02-21 19:52] LABS: Adenovirus Not Detected (Not Detect); Coronavirus 229E Not Detected (Not Detect); Coronavirus HKU1 Not Detected (Not Detect)
[2020-02-21 19:53] LABS: Bordetella Pertussis Not Detected (Not Detect); Chlamydophila pneumoniae Not Detected (Not Detect); Coronavirus NL63 Not Detected (Not Detect); Coronavirus OC43 Not Detected (Not Detect); Human Metapneumovirus Not Detected (Not Detect); Human Rhinovirus/Enterovirus Not Detected (Not Detect); Influenza A Subtype 2009 H1 Not Detected (Not Detect); Influenza B Not Detected (Not Detect); Mycoplasma pneumoniae Not Detected (Not Detect); Parainfluenza Virus 1 Not Detected (Not Detect); Parainfluenza Virus 2 Not Detected (Not Detect); Parainfluenza Virus 3 Not Detected (Not Detect); Parainfluenza Virus 4 Not Detected (Not Detect); Respiratory Syncytial Virus Not Detected (Not Detect); SARS-CoV-2 Not Detected (Not Detect)
[2020-02-22] MEDS: Insulin LISPRO 300 UNITS/3 ML VIAL SQ SCH ×2 (00:16→05:47)
[2020-02-22] MEDS: *HR* Labetalol 20 MG/4 ML SYRINGE IVP PRN (03:26)
[2020-02-22] MEDS: *HR* OxyCODONE Immed Rel 5 MG TABLET PO PRN ×2 (06:37→23:57)
[2020-02-22] MEDS ORDERED: Clindamycin 900 MG/50 ML 900 MG/50 ML IV.SOLN IVPB SCH ×2 (08:13→16:00)
[2020-02-22] MEDS: lisinopriL 10 MG TABLET PO SCH (09:05)
[2020-02-22] MEDS: Furosemide 20 MG TABLET PO SCH (09:05)
[2020-02-22] MEDS: Thiamine (B-1) 100 MG TABLET PO SCH (09:05)
[2020-02-22] MEDS: amLODIPine 5 MG TABLET PO SCH (09:05)
[2020-02-22] MEDS: predniSONE 20 MG TABLET PO SCH (09:05)
[2020-02-22] MEDS: Nystatin POWDER 30 GM BOTTLE TP SCH (09:06)
[2020-02-22] MEDS: Gabapentin 300 MG CAPSULE PO SCH (09:06)
[2020-02-22] MEDS ORDERED: *HR* HYDROMORPHONE 2 MG/ML VIAL ONE (11:55)
[2020-02-22] MEDS ORDERED: *HR* FentaNYL (PF) 100 MCG/2 ML VIAL ONE ×2 (11:56→12:44)
[2020-02-22] MEDS ORDERED: *HR* Propofol 200 MG/20 ML VIAL IVP ONE (11:56)
[2020-02-22] MEDS ORDERED: *HR* Midazolam HCl 2 MG/2 ML VIAL ONE (11:56)
[2020-02-22] MEDS ORDERED: *HR* Rocuronium Bromide 50 MG/5 ML VIAL ONE (11:57)
[2020-02-22] MEDS ORDERED: Lidocaine -MPF 2% 2 ML VIAL ONE (11:57)
[2020-02-22] MEDS ORDERED: Dexamethasone 4 MG/ML VIAL ONE ×2 (11:57→12:56)
[2020-02-22] MEDS ORDERED: Ondansetron 4 MG/2 ML VIAL ONE (11:57)
[2020-02-22] MEDS ORDERED: Lidocaine HCL 4 ML Topical Solution (Laryng-O-Jet Kit Sterile Pak) TP ONE (12:37)
[2020-02-22] MEDS ORDERED: Clindamycin 900 MG/50 ML 900 MG/50 ML IV.SOLN IVPB ONE (12:41)
[2020-02-22] MEDS ORDERED: *HR* Succinylcholine 200 MG/10 ML VIAL IVP ONE (13:21)
[2020-02-22] MEDS ORDERED: *HR* Labetalol 20 MG/4 ML SYRINGE IVP ONE (15:13)
[2020-02-22] MEDS: *HR* HYDROmorphone PF 0.5 MG/0.5 ML SYRINGE IVP PRN ×2 (15:17→15:25)
[2020-02-22] MEDS ORDERED: Ondansetron 4 MG/2 ML VIAL IVP PRN (15:18)
[2020-02-22] MEDS ORDERED: *HR* Labetalol 20 MG/4 ML SYRINGE IVP PRN (15:18)
[2020-02-22] MEDS ORDERED: Promethazine Syrup 6.25 MG/5 ML PO PRN (15:18)
[2020-02-22] MEDS ORDERED: Naloxone 0.4 MG/ML INJ IVP PRN (15:49)
[2020-02-22] MEDS: Clindamycin 900 MG/50 ML 900 MG/50 ML IV.SOLN IVPB SCH ×2 (16:26→23:57)
[2020-02-22] MEDS ORDERED: Bacitracin 50,000 UNIT, Polymyxin B Sulfate 500,000 UNIT, Sodium Chloride IRRigation 1,... IR ONE (16:30)
[2020-02-22] MEDS: *HR* Metformin 500 MG TABLET PO SCH (20:26)
[2020-02-22] MEDS ORDERED: NON-FORMULARY MEDICATION 1 EACH EACH (Diclofenac Sodium [Voltaren] 100 GM) TP SCH (21:00)
[2020-02-22] MEDS: *HR* HYDROcodone/Acet 5/325 mg TABLET PO PRN (22:02)
[2020-02-23] MEDS: *HR* OxyCODONE Immed Rel 5 MG TABLET PO PRN ×2 (04:15→13:25)
[2020-02-23 04:37] LABS: Basophils % 0.1 %; Hematocrit 35.8 % (35.3-44.9); Hemoglobin 11.3 g/dL (11.5-15.4); Immature Granulocytes % 0.7 % (0-4); Lymphocytes # 2.3 K/mcL (0.6-4.6); Lymphocytes % 16.8 %; Mean Corpuscular HGB Conc 31.6 g/dL (31.6-35.5); Mean Corpuscular Hemoglobin 28.2 pg (28.0-33.3); Mean Corpuscular Volume 89.3 fL (83.0-100.0); Mean Platelet Volume 9.2 fL (9.4-12.4); Monocytes # 0.6 K/mcL (0.0-1.3); Monocytes % 4.6 %; Neutrophils # 10.7 K/mcL (1.6-8.9); Platelet Count 292 K/mcL (140-400); Red Blood Count 4.01 M/mcL (3.82-4.97); Red Cell Distribution Width 13.9 % (11.5-14.5); Segmented Neutrophils % 77.8 %; White Blood Count 13.8 K/mcL (4.3-11.1)
[2020-02-23 04:56] LABS: BUN/Creatinine Ratio 32 (6-26); Blood Urea Nitrogen 19 mg/dL (6-20); Calcium 8.8 mg/dL (8.6-10.3); Carbon Dioxide 30 mEq/L (23-29); Chloride 101 mEq/L (98-107); Glucose 126 mg/dL (70-105); Osmolality,Calculated 288 (280-300); Potassium 4.3 mEq/L (3.5-5.1); Sodium 137 mEq/L (136-145); eGFR For African Americans > 60 (> 60); eGFR For Non-African Americans > 60 (> 60)
[2020-02-23] MEDS: Ondansetron 4 MG/2 ML VIAL IVP PRN (08:02)
[2020-02-23] MEDS: Cholecalciferol (D-3) 1,000 UNIT (25MCG) TABLET PO SCH (08:03)
[2020-02-23] MEDS: Multivit/Ca/Min/Fe/FA 1 TAB TABLET PO SCH (08:03)
[2020-02-23] MEDS: Vitamin B Complex/Vit C/Vit E 1 EACH TABLET PO SCH (08:03)
[2020-02-23] MEDS: Ascorbic Acid 500 MG TABLET PO SCH (08:03)
[2020-02-23] MEDS: *HR* Metformin 500 MG TABLET PO SCH (08:04)
[2020-02-23] MEDS: *HR* HYDROcodone/Acet 5/325 mg TABLET PO PRN (08:12)
[2020-02-23] MEDS ORDERED: NON-FORMULARY MEDICATION 1 EACH EACH (Turmeric Root Extract [Turmeric] 500 MG) PO SCH (09:00)
[2020-02-23] MEDS ORDERED: Dextrose Gel 15 GM/37.5 ML TUBE PO PRN ×2 (16:16)
[2020-02-23] MEDS ORDERED: D5% in Water 1,000 ML IVC PRN (16:16)
[2020-02-23] MEDS ORDERED: *HR* Dextrose 50 % in Water (Vial) 50 ML VIAL IVP PRN (16:16)
[2020-02-23] MEDS ORDERED: Pantoprazole 40 MG VIAL IVP ONE (16:21)
[2020-02-23] MEDS: Insulin LISPRO 300 UNITS/3 ML VIAL SQ SCH ×2 (17:13→23:11)
[2020-02-23] MEDS: Ringers Solution, Lactated 1,000 ML IVC SCH (17:15)
[2020-02-23 17:32] LABS: Hematocrit 38.7 % (35.3-44.9); Hemoglobin 11.7 g/dL (11.5-15.4)
[2020-02-23] MEDS: *HR* HYDROmorphone 2 MG/ML SYRINGE IVP PRN ×2 (18:45→23:10)
[2020-02-24] MEDS: *HR* HYDROmorphone 2 MG/ML SYRINGE IVP PRN ×4 (03:54→19:15)
[2020-02-24] MEDS: Ringers Solution, Lactated 1,000 ML IVC SCH (03:55)
[2020-02-24 05:29] LABS: Basophils # 0.1 K/mcL (0.0-0.2); Basophils % 0.5 %; Eosinophils # 0.1 K/mcL (0.0-0.6); Eosinophils % 0.7 %; Hematocrit 34.9 % (35.3-44.9); Hemoglobin 10.9 g/dL (11.5-15.4); Immature Granulocytes % 0.6 % (0-4); Lymphocytes # 3.4 K/mcL (0.6-4.6); Lymphocytes % 27.9 %; Mean Corpuscular HGB Conc 31.2 g/dL (31.6-35.5); Mean Corpuscular Hemoglobin 28.8 pg (28.0-33.3); Mean Corpuscular Volume 92.1 fL (83.0-100.0); Mean Platelet Volume 9.5 fL (9.4-12.4); Monocytes # 0.6 K/mcL (0.0-1.3); Monocytes % 4.8 %; Platelet Count 252 K/mcL (140-400); Red Blood Count 3.79 M/mcL (3.82-4.97); Red Cell Distribution Width 13.9 % (11.5-14.5); Segmented Neutrophils % 65.5 %; White Blood Count 12.3 K/mcL (4.3-11.1)
[2020-02-24 06:32] LABS: BUN/Creatinine Ratio 32 (6-26); Blood Urea Nitrogen 21 mg/dL (6-20); Calcium 8.8 mg/dL (8.6-10.3); Carbon Dioxide 30 mEq/L (23-29); Chloride 102 mEq/L (98-107); Glucose 122 mg/dL (70-105); Osmolality,Calculated 290 (280-300); Sodium 138 mEq/L (136-145); eGFR For African Americans > 60 (> 60); eGFR For Non-African Americans > 60 (> 60)
[2020-02-24] MEDS: Insulin LISPRO 300 UNITS/3 ML VIAL SQ SCH ×4 (08:14→21:41)
[2020-02-24] MEDS: Multivit/Ca/Min/Fe/FA 1 TAB TABLET PO SCH (08:15)
[2020-02-24] MEDS: Ascorbic Acid 500 MG TABLET PO SCH (08:15)
[2020-02-24] MEDS: Cholecalciferol (D-3) 1,000 UNIT (25MCG) TABLET PO SCH (08:15)
[2020-02-24] MEDS: Vitamin B Complex/Vit C/Vit E 1 EACH TABLET PO SCH (08:16)
[2020-02-24] MEDS: Ondansetron 4 MG/2 ML VIAL IVP PRN (11:11)
[2020-02-24] MEDS: *HR* FentaNYL PATCH 25 MCG PATCH TD SCH (12:51)
[2020-02-25] MEDS: diazePAM 10 MG TABLET PO PRN ×3 (00:28→17:47)
[2020-02-25] MEDS: *HR* HYDROmorphone 2 MG/ML SYRINGE IVP PRN ×5 (01:57→21:40)
[2020-02-25 07:14] LABS: Basophils # 0.1 K/mcL (0.0-0.2); Basophils % 0.5 %; Eosinophils # 0.2 K/mcL (0.0-0.6); Eosinophils % 1.7 %; Hematocrit 33.6 % (35.3-44.9); Hemoglobin 10.2 g/dL (11.5-15.4); Immature Granulocytes % 0.3 % (0-4); Lymphocytes # 2.8 K/mcL (0.6-4.6); Lymphocytes % 30.3 %; Mean Corpuscular HGB Conc 30.4 g/dL (31.6-35.5); Mean Corpuscular Hemoglobin 27.6 pg (28.0-33.3); Mean Corpuscular Volume 90.8 fL (83.0-100.0); Mean Platelet Volume 9.5 fL (9.4-12.4); Monocytes # 0.5 K/mcL (0.0-1.3); Monocytes % 5.3 %; Neutrophils # 5.7 K/mcL (1.6-8.9); Platelet Count 237 K/mcL (140-400); Red Cell Distribution Width 13.5 % (11.5-14.5); Segmented Neutrophils % 61.9 %; White Blood Count 9.2 K/mcL (4.3-11.1)
[2020-02-25 07:36] LABS: BUN/Creatinine Ratio 24 (6-26); Blood Urea Nitrogen 14 mg/dL (6-20); Calcium 8.9 mg/dL (8.6-10.3); Carbon Dioxide 32 mEq/L (23-29); Chloride 99 mEq/L (98-107); Glucose 116 mg/dL (70-105); Osmolality,Calculated 285 (280-300); Potassium 3.8 mEq/L (3.5-5.1); Sodium 137 mEq/L (136-145); eGFR For African Americans > 60 (> 60); eGFR For Non-African Americans > 60 (> 60)
[2020-02-25] MEDS: Aspirin Enteric Coated 81 MG Tablet PO SCH (10:34)
[2020-02-25] MEDS: Ascorbic Acid 500 MG TABLET PO SCH (10:34)
[2020-02-25] MEDS: Vitamin B Complex/Vit C/Vit E 1 EACH TABLET PO SCH (10:34)
[2020-02-25] MEDS: Multivit/Ca/Min/Fe/FA 1 TAB TABLET PO SCH (10:34)
[2020-02-25] MEDS: Acetaminophen 325 MG TABLET PO PRN ×2 (10:35→16:00)
[2020-02-25] MEDS: Cholecalciferol (D-3) 1,000 UNIT (25MCG) TABLET PO SCH (10:35)
[2020-02-25] MEDS: Insulin LISPRO 300 UNITS/3 ML VIAL SQ SCH ×3 (10:36→17:14)
[2020-02-25] MEDS: Ondansetron 4 MG/2 ML VIAL IVP PRN (12:15)
[2020-02-25] MEDS: Sennosides 8.6 MG TABLET PO SCH ×2 (14:57→21:41)
[2020-02-25] MEDS: (Diclofenac Sodium [Voltaren] 100 GM) TP SCH (22:44)
[2020-02-26] MEDS: (Diclofenac Sodium [Voltaren] 100 GM) TP SCH ×4 (00:50→20:35)
[2020-02-26 02:04] LABS: Basophils # 0.1 K/mcL (0.0-0.2); Basophils % 0.6 %; Eosinophils # 0.2 K/mcL (0.0-0.6); Hematocrit 36.5 % (35.3-44.9); Hemoglobin 11.2 g/dL (11.5-15.4); Immature Granulocytes % 0.6 % (0-4); Lymphocytes # 3.6 K/mcL (0.6-4.6); Lymphocytes % 30.6 %; Mean Corpuscular HGB Conc 30.7 g/dL (31.6-35.5); Mean Corpuscular Volume 91.3 fL (83.0-100.0); Monocytes # 0.6 K/mcL (0.0-1.3); Monocytes % 5.4 %; Neutrophils # 7.1 K/mcL (1.6-8.9); Platelet Count 294 K/mcL (140-400); Red Cell Distribution Width 13.4 % (11.5-14.5); Segmented Neutrophils % 60.8 %; White Blood Count 11.8 K/mcL (4.3-11.1)
[2020-02-26] MEDS: *HR* HYDROmorphone 2 MG/ML SYRINGE IVP PRN ×4 (02:05→20:30)
[2020-02-26] MEDS: diazePAM 10 MG TABLET PO PRN ×3 (02:17→18:34)
[2020-02-26] MEDS: Insulin LISPRO 300 UNITS/3 ML VIAL SQ SCH ×5 (02:18→20:37)
[2020-02-26 02:26] LABS: BUN/Creatinine Ratio 25 (6-26); Blood Urea Nitrogen 16 mg/dL (6-20); Calcium 9.2 mg/dL (8.6-10.3); Carbon Dioxide 29 mEq/L (23-29); Chloride 96 mEq/L (98-107); Glucose 129 mg/dL (70-105); Osmolality,Calculated 283 (280-300); Potassium 3.7 mEq/L (3.5-5.1); Sodium 135 mEq/L (136-145); eGFR For African Americans > 60 (> 60); eGFR For Non-African Americans > 60 (> 60)
[2020-02-26] MEDS: Sennosides 8.6 MG TABLET PO SCH ×2 (09:12→20:31)
[2020-02-26] MEDS: Metoprolol XL (24 HR) Succ 25 MG TAB.ER.24H PO SCH (09:12)
[2020-02-26] MEDS: lisinopriL 10 MG TABLET PO SCH (09:12)
[2020-02-26] MEDS: Multivit/Ca/Min/Fe/FA 1 TAB TABLET PO SCH (09:12)
[2020-02-26] MEDS: Cholecalciferol (D-3) 1,000 UNIT (25MCG) TABLET PO SCH (09:12)
[2020-02-26] MEDS: Ascorbic Acid 500 MG TABLET PO SCH (09:12)
[2020-02-26] MEDS: Aspirin Enteric Coated 81 MG Tablet PO SCH (09:12)
[2020-02-26] MEDS: Vitamin B Complex/Vit C/Vit E 1 EACH TABLET PO SCH (09:13)
[2020-02-26] MEDS: Acetaminophen 325 MG TABLET PO PRN (09:43)
[2020-02-26] MEDS: Ondansetron 4 MG/2 ML VIAL IVP PRN (11:57)
[2020-02-27] MEDS: diazePAM 10 MG TABLET PO PRN (01:58)
[2020-02-27 02:24] LABS: Basophils # 0.1 K/mcL (0.0-0.2); Basophils % 0.6 %; Eosinophils # 0.3 K/mcL (0.0-0.6); Eosinophils % 2.8 %; Hematocrit 32.4 % (35.3-44.9); Hemoglobin 9.9 g/dL (11.5-15.4); Immature Granulocytes % 0.6 % (0-4); Lymphocytes # 2.8 K/mcL (0.6-4.6); Lymphocytes % 30.1 %; Mean Corpuscular HGB Conc 30.6 g/dL (31.6-35.5); Mean Corpuscular Hemoglobin 27.7 pg (28.0-33.3); Mean Corpuscular Volume 90.8 fL (83.0-100.0); Mean Platelet Volume 9.4 fL (9.4-12.4); Monocytes # 0.6 K/mcL (0.0-1.3); Neutrophils # 5.7 K/mcL (1.6-8.9); Platelet Count 247 K/mcL (140-400); Red Blood Count 3.57 M/mcL (3.82-4.97); Red Cell Distribution Width 13.5 % (11.5-14.5); Segmented Neutrophils % 59.9 %; White Blood Count 9.4 K/mcL (4.3-11.1)
[2020-02-27 02:40] LABS: BUN/Creatinine Ratio 20 (6-26); Blood Urea Nitrogen 12 mg/dL (6-20); Calcium 8.6 mg/dL (8.6-10.3); Carbon Dioxide 31 mEq/L (23-29); Chloride 99 mEq/L (98-107); Glucose 133 mg/dL (70-105); Osmolality,Calculated 284 (280-300); Potassium 3.7 mEq/L (3.5-5.1); Sodium 136 mEq/L (136-145); eGFR For African Americans > 60 (> 60); eGFR For Non-African Americans > 60 (> 60)
[2020-02-27] MEDS: Insulin LISPRO 300 UNITS/3 ML VIAL SQ SCH ×4 (07:35→21:11)
[2020-02-27] MEDS: *HR* HYDROmorphone 2 MG/ML SYRINGE IVP PRN ×3 (07:51→21:20)
[2020-02-27] MEDS: lisinopriL 10 MG TABLET PO SCH ×2 (07:52→10:20)
[2020-02-27] MEDS: Multivit/Ca/Min/Fe/FA 1 TAB TABLET PO SCH (07:52)
[2020-02-27] MEDS: Ascorbic Acid 500 MG TABLET PO SCH (07:52)
[2020-02-27] MEDS: Cholecalciferol (D-3) 1,000 UNIT (25MCG) TABLET PO SCH (07:52)
[2020-02-27] MEDS: Aspirin Enteric Coated 81 MG Tablet PO SCH (07:53)
[2020-02-27] MEDS: Metoprolol XL (24 HR) Succ 25 MG TAB.ER.24H PO SCH ×2 (07:53→10:20)
[2020-02-27] MEDS: Sennosides 8.6 MG TABLET PO SCH (07:53)
[2020-02-27] MEDS: Vitamin B Complex/Vit C/Vit E 1 EACH TABLET PO SCH (07:53)
[2020-02-27] MEDS: (Diclofenac Sodium [Voltaren] 100 GM) TP SCH ×2 (10:22→21:19)
[2020-02-27] MEDS: *HR* FentaNYL PATCH 25 MCG PATCH TD SCH (11:49)
[2020-02-27] MEDS: Acetaminophen 325 MG TABLET PO PRN (11:49)
[2020-02-27] MEDS ORDERED: *HR* FentaNYL PATCH 50 MCG PATCH TD SCH (17:30)
[2020-02-28 01:40] LABS: Basophils # 0.1 K/mcL (0.0-0.2); Basophils % 0.6 %; Eosinophils # 0.3 K/mcL (0.0-0.6); Eosinophils % 2.6 %; Hematocrit 32.9 % (35.3-44.9); Hemoglobin 10.1 g/dL (11.5-15.4); Immature Granulocytes % 0.7 % (0-4); Lymphocytes % 31.1 %; Mean Corpuscular HGB Conc 30.7 g/dL (31.6-35.5); Mean Corpuscular Volume 91.1 fL (83.0-100.0); Mean Platelet Volume 9.5 fL (9.4-12.4); Monocytes # 0.6 K/mcL (0.0-1.3); Monocytes % 6.5 %; Neutrophils # 5.6 K/mcL (1.6-8.9); Platelet Count 277 K/mcL (140-400); Red Blood Count 3.61 M/mcL (3.82-4.97); Red Cell Distribution Width 13.8 % (11.5-14.5); Segmented Neutrophils % 58.5 %; White Blood Count 9.6 K/mcL (4.3-11.1)
[2020-02-28 01:59] LABS: BUN/Creatinine Ratio 19 (6-26); Blood Urea Nitrogen 12 mg/dL (6-20); Calcium 8.9 mg/dL (8.6-10.3); Carbon Dioxide 29 mEq/L (23-29); Chloride 101 mEq/L (98-107); Glucose 140 mg/dL (70-105); Osmolality,Calculated 286 (280-300); Sodium 137 mEq/L (136-145); eGFR For African Americans > 60 (> 60); eGFR For Non-African Americans > 60 (> 60)
[2020-02-28] MEDS: diazePAM 10 MG TABLET PO PRN (04:52)
[2020-02-28] MEDS: Acetaminophen 325 MG TABLET PO PRN (06:06)
[2020-02-28] MEDS: Multivit/Ca/Min/Fe/FA 1 TAB TABLET PO SCH (08:05)
[2020-02-28] MEDS: Metoprolol XL (24 HR) Succ 25 MG TAB.ER.24H PO SCH (08:05)
[2020-02-28] MEDS: Cholecalciferol (D-3) 1,000 UNIT (25MCG) TABLET PO SCH (08:06)
[2020-02-28] MEDS: lisinopriL 10 MG TABLET PO SCH (08:06)
[2020-02-28] MEDS: Vitamin B Complex/Vit C/Vit E 1 EACH TABLET PO SCH (08:06)
[2020-02-28] MEDS: Aspirin Enteric Coated 81 MG Tablet PO SCH (08:06)
[2020-02-28] MEDS: Ascorbic Acid 500 MG TABLET PO SCH (08:06)
[2020-02-28] MEDS: (Diclofenac Sodium [Voltaren] 100 GM) TP SCH ×2 (08:13→21:03)
[2020-02-28] MEDS: Ondansetron 4 MG/2 ML VIAL IVP PRN (08:13)
[2020-02-28] MEDS: Insulin LISPRO 300 UNITS/3 ML VIAL SQ SCH ×4 (09:08→20:46)
[2020-02-28] MEDS: *HR* HYDROmorphone 2 MG/ML SYRINGE IVP PRN ×2 (16:10→23:37)
[2020-02-29 03:23] LABS: Basophils % 0.4 %; Eosinophils # 0.2 K/mcL (0.0-0.6); Eosinophils % 2.3 %; Immature Granulocytes % 0.6 % (0-4); Lymphocytes # 2.4 K/mcL (0.6-4.6); Lymphocytes % 24.7 %; Mean Corpuscular HGB Conc 30.3 g/dL (31.6-35.5); Mean Corpuscular Hemoglobin 28.2 pg (28.0-33.3); Mean Corpuscular Volume 93.2 fL (83.0-100.0); Mean Platelet Volume 9.7 fL (9.4-12.4); Monocytes # 0.5 K/mcL (0.0-1.3); Monocytes % 5.5 %; Neutrophils # 6.4 K/mcL (1.6-8.9); Platelet Count 262 K/mcL (140-400); Red Blood Count 3.54 M/mcL (3.82-4.97); Red Cell Distribution Width 13.7 % (11.5-14.5); Segmented Neutrophils % 66.5 %; White Blood Count 9.6 K/mcL (4.3-11.1)
[2020-02-29 03:33] LABS: BUN/Creatinine Ratio 16 (6-26); Blood Urea Nitrogen 12 mg/dL (6-20); Carbon Dioxide 31 mEq/L (23-29); Chloride 101 mEq/L (98-107); Glucose 121 mg/dL (70-105); Magnesium 1.9 mg/dL (1.6-2.6); Osmolality,Calculated 287 (280-300); Potassium 3.8 mEq/L (3.5-5.1); Sodium 138 mEq/L (136-145); eGFR For African Americans > 60 (> 60); eGFR For Non-African Americans > 60 (> 60)
[2020-02-29] MEDS: *HR* HYDROmorphone 2 MG/ML SYRINGE IVP PRN (03:42)
[2020-02-29] MEDS: Insulin LISPRO 300 UNITS/3 ML VIAL SQ SCH (07:50)
[2020-02-29] MEDS: Aspirin Enteric Coated 81 MG Tablet PO SCH (08:15)
[2020-02-29] MEDS: lisinopriL 10 MG TABLET PO SCH (08:15)
[2020-02-29] MEDS: Metoprolol XL (24 HR) Succ 25 MG TAB.ER.24H PO SCH (08:15)
[2020-02-29] MEDS: Vitamin B Complex/Vit C/Vit E 1 EACH TABLET PO SCH (08:15)
[2020-02-29] MEDS: Cholecalciferol (D-3) 1,000 UNIT (25MCG) TABLET PO SCH (08:15)
[2020-02-29] MEDS: Ascorbic Acid 500 MG TABLET PO SCH (08:15)
[2020-02-29] MEDS: Multivit/Ca/Min/Fe/FA 1 TAB TABLET PO SCH (08:16)
[2020-02-29] MEDS: Acetaminophen 325 MG TABLET PO PRN (08:18)
[2020-02-29] MEDS: (Diclofenac Sodium [Voltaren] 100 GM) TP SCH (08:19)
[2020-02-29 11:42] VITALS: BP 129/78
== END 2020-02-29 12:00 | disposition home health service (06) | DRG 519 ==
LOC: 3NENU 15:32 → EMEROOARM 15:32 → SUATTDRO 21:48 → 3NENU 22:20 → SUATTDRO 02-21 15:44
PROVIDERS: ADMIT Family Medicine; ATTEND Pharmacist